=== PATIENT | female | born 1975 | race Hispanic/Latino ===

== ENCOUNTER 2017-05-30 02:05 | Outpatient (CLI) | payer OTHER | END 2017-05-30 02:06 | disposition home or self-care (01) | LOC: BICRAD 02:05 | PROVIDERS: ATTEND Family Medicine | DX: R10.31 Right lower quadrant pain (principal) | CPT/HCPCS: 36415; 74019; 80053; 81001; 85025 ==

== ENCOUNTER 2018-01-25 14:08 | Outpatient (CLI) | payer OTHER | END 2018-01-25 14:09 | disposition home or self-care (01) | LOC: BICULT 14:08 | PROVIDERS: ATTEND Physician Assistant | DX: R22.1 Localized swelling, mass and lump, neck (principal); E04.1 Nontoxic single thyroid nodule | CPT/HCPCS: 76536 ==

== ENCOUNTER 2019-09-16 12:08 | Outpatient (CLI) | payer OTHER ==
--- NOTE | 2019-09-16 13:35 | RAD ---
RIGHT FOOT THREE VIEWS: History: Foreign body in the right foot. Patient stepped on a sewing needle over 30 years ago. Patient states it has worked its way to the surface and is giving her pain. FINDINGS/IMPRESSION: No fracture or dislocation is seen. There are radiopaque densities consistent with needle fragments i n the soft tissues of the medial plantar aspect of the right foot inferior to the calcaneus close to the plantar calcaneal spur. POS: [facility]
== END 2019-09-16 12:09 | disposition home or self-care (01) ==
LOC: BICRAD 12:08
PROVIDERS: ATTEND Nurse Practitioner Family
DX: S90.851D Superficial foreign body, right foot, subsequent encounter (principal)

== ENCOUNTER 2021-03-31 08:37 | Outpatient (CLI) | payer OTHER | END 2021-03-31 08:38 | disposition home or self-care (01) | LOC: BICULT 08:37 | PROVIDERS: ATTEND Family Medicine | DX: R74.01 Elevation of levels of liver transaminase levels (principal); K76.0 Fatty (change of) liver, not elsewhere classified | CPT/HCPCS: 76700 ==